=== PATIENT | female | born 1960 | race Caucasian/White ===

== ENCOUNTER 2018-10-16 12:33 | Day surgery (SDC) | payer BC ==
[~2018-10-16] VITALS: Ht 170.2 cm; Wt 70.4 kg
[~2018-10-16 12:33] MED LIST: BUPIVACAINE/PF 0.5% ONE; EPINEPHRINE 1 MG/ML, 1ML ONE; LIDOCAINE 1%, 20ML ONE
[2018-10-16 12:50] VITALS: BP 177/109
[2018-10-16] MEDS ORDERED: MIDAZOLAM 1 MG/ML, 2ML ONE (12:52)
[2018-10-16] MEDS ORDERED: FENTANYL PF 100 MCG/2ML ONE ×2 (12:53→15:08)
[2018-10-16] MEDS ORDERED: LACTATED RINGERS 1,000 ML IV SCH (12:58)
[2018-10-16 12:59] VITALS: BP 177/109
[2018-10-16] MEDS ORDERED: GABAPENTIN 300 MG CAPSULE PO ONE (13:00)
[2018-10-16] MEDS ORDERED: ACETAMINOPHEN 500 MG TABLET PO ONE (13:00)
[2018-10-16] MEDS ORDERED: ASPI-496 PO (13:07)
[2018-10-16] MEDS ORDERED: RED600CA2 PO (13:07)
[2018-10-16] MEDS ORDERED: UBID100C41 PO (13:07)
[2018-10-16] MEDS ORDERED: OMEP-110 PO (13:07)
[2018-10-16] MEDS ORDERED: CALC1TAB3 PO (13:07)
[2018-10-16] MEDS ORDERED: IBUP-1223 PO (13:07)
[2018-10-16] MEDS ORDERED: ALPR-475 PO (13:07)
[2018-10-16] MEDS ORDERED: KETOROLAC 30 MG/1 ML ONE (14:17)
[2018-10-16] MEDS ORDERED: hydrALAzine 20 MG/ML, 1ML IV PRN (14:30)
[2018-10-16] MEDS ORDERED: PROMETHAZINE 25 MG/ML, 1ML IV PRN (14:30)
[2018-10-16] MEDS ORDERED: SCOPOLAMINE PATCH, 1.5MG PATCH.TD72 TD PRN (14:30)
[2018-10-16] MEDS ORDERED: ALBUTEROL/IPRATROPIUM 2.5MG/0.5MG, 3 ML NPPB PRN (14:30)
[2018-10-16] MEDS ORDERED: OXYcodone 5 MG/5 ML ORAL.SOL UDC PO PRN (14:30)
[2018-10-16] MEDS ORDERED: HYDROmorphone 2 MG/ML, 1ML IVPush PRN (14:30)
[2018-10-16] MEDS ORDERED: MIDAZOLAM 1 MG/ML, 2ML IV PRN (14:30)
[2018-10-16] MEDS ORDERED: ONDANSETRON 2MG/ML, 2ML IV PRN (14:30)
[2018-10-16] MEDS ORDERED: MEPERIDINE/PF 25MG/0.5ML IVPush PRN (14:30)
[2018-10-16] MEDS ORDERED: CEFAZOLIN 1,000 MG ONE (14:43)
[2018-10-16] MEDS ORDERED: PROPOFOL 10 MG/ML, 20ML ONE (14:43)
[2018-10-16] MEDS ORDERED: DEXAMETHASONE 4 MG/ML, 1ML ONE (14:43)
[2018-10-16] MEDS ORDERED: ONDANSETRON 2MG/ML, 2ML ONE (14:43)
[2018-10-16] MEDS ORDERED: IBUPROFEN 800 MG TABLET PO SCH (15:00)
[2018-10-16] MEDS ORDERED: OXYcodone 5 MG/5 ML ORAL.SOL UDC ONE (15:07)
[2018-10-16] MEDS: FENTANYL PF 100 MCG/2ML IV PRN ×2 (15:12→15:17)
[2018-10-16] MEDS ORDERED: HYDROmorphone 2 MG/ML, 1ML ONE (15:18)
[2018-10-17] MEDS ORDERED: OMEPRAZOLE 20 MG CAPSULE.DR PO SCH (06:00)
[2018-10-17] MEDS ORDERED: ASPIRIN 81 MG TABLET EC PO SCH (09:00)
== END 2018-10-16 17:00 | disposition home or self-care (01) ==
LOC: OUT 12:33
PROVIDERS: ATTEND Orthopaedic Surgery
DX: S83.281A Other tear of lateral meniscus, current injury, right knee, initial encounter (principal); M94.261 Chondromalacia, right knee; I10 Essential (primary) hypertension; I25.10 Atherosclerotic heart disease of native coronary artery without angina pectoris; K21.9 Gastro-esophageal reflux disease without esophagitis; Z72.89 Other problems related to lifestyle; X58.XXXA Exposure to other specified factors, initial encounter; Y93.89 Activity, other specified; Y92.89 Other specified places as the place of occurrence of the external cause; Y99.8 Other external cause status
CPT/HCPCS: 29881; J0171; J0690; J1100; J1170; J1885; J2250; J2405; J2704; J3010; J3490; J7120